=== PATIENT | male | born 1975 | race African-American/Black ===

== ENCOUNTER 2016-08-17 20:39 | Emergency (ER) | payer MEDICAID ==
[~2016-08-17] VITALS: Ht 175.3 cm; Wt 98.5 kg
[2016-08-18 05:53] VITALS: BP 115/79
== END 2016-08-18 06:20 | disposition left against medical advice (07) ==
LOC: ER 20:47
DX: R10.9 Unspecified abdominal pain (principal); R11.2 Nausea with vomiting, unspecified; Z53.21 Procedure and treatment not carried out due to patient leaving prior to being seen by health care provider

== ENCOUNTER → 2016-08-18 | Emergency (ER) | payer MEDICAID | END | disposition left against medical advice (07) | LOC: EDUNIT# 00:10 → ER 00:16 → EDBD 00:16 | DX: Z76.1 Encounter for health supervision and care of foundling (principal); Z53.21 Procedure and treatment not carried out due to patient leaving prior to being seen by health care provider ==

== ENCOUNTER 2016-10-08 02:55 | Observation (INO) | payer MEDICAID ==
[~2016-10-08] VITALS: Ht 175.3 cm; Wt 90.7 kg
[2016-10-08 03:57] LABS: Albumin 4.3 g/dL (3.4-5.0); BUN/Creatinine Ratio 11.5; Calcium 8.8 mg/dL (8.5-10.1); Magnesium 2.4 mg/dL (1.6-2.6)
[2016-10-08 04:04] LABS: Salicylate 2.7 mg/dL (2.8-20.0)
[2016-10-08 04:13] LABS: Acetaminophen < 2.0 ug/mL (10-30)
[2016-10-08 04:14] LABS: Basophils # (auto) 0.1 uL; Basophils % (auto) 0.7 % (0.0-2.0); Eosinophils # (auto) 0.1 uL; Eosinophils % (auto) 1.6 % (0.0-7.0); Hematocrit 47.6 % (41.0-53.0); Lymphocytes # (auto) 3.3 uL; Lymphocytes % (auto) 42.6 % (10.0-50.0); Mean Corpuscular Hemoglobin 31.1 pg (28.0-32.0); Mean Corpuscular Hgb Conc. 33.5 g/dL (32.0-36.0); Mean Corpuscular Volume 92.6 fL (80.0-100.0); Mean Platelet Volume 6.8 fL (7.4-10.4); Monocytes # (auto) 0.5 uL; Neutrophils # (auto) 3.8 uL; Neutrophils % (auto) 48.1 % (37.0-80.0); Platelet Count (auto) 407 10^3/uL (140-450); Red Cell Distribution Width 12.2 % (11.6-16.0); White Blood Cell 7.8 10^3/uL (4.4-10.8)
[2016-10-08 04:17] LABS: Bilirubin, Total 0.3 mg/dL (0.2-1.0); Potassium 3.8 mmol/L (3.5-5.1); Total Protein 7.8 g/dL (6.4-8.2)
[2016-10-08] MEDS ORDERED: SODIUM CHLORIDE 0.9% 1,000 ML IV ONE (07:58)
[2016-10-08] MEDS ORDERED: THIAMINE INJ 100 MG, MULTIPLE VITAMIN 10 ML, FOLIC ACID 1 MG, MAGNESIUM SULF SDV 50% 8 ... IV ONE ×5 (08:00)
[2016-10-08 10:50] VITALS: BP 123/65
== END 2016-10-08 12:21 | disposition home or self-care (01) | DRG 775 ==
LOC: ER 02:58 → OVERFLOW 07:59 → ER 12:21
PROVIDERS: ADMIT Emergency Medicine; ATTEND Emergency Medicine
DX: F10.129 Alcohol abuse with intoxication, unspecified (principal); I10 Essential (primary) hypertension; F15.10 Other stimulant abuse, uncomplicated; E86.0 Dehydration; E11.9 Type 2 diabetes mellitus without complications; F17.210 Nicotine dependence, cigarettes, uncomplicated
CPT/HCPCS: 36415; 80053; 80320; 80329; 82962; 83735; 85025; 96365; 96366; 99285; G0378; G0434; J3411; J3475; J7030

== ENCOUNTER 2016-10-08 23:51 | Emergency (ER) | payer MEDICAID ==
[~2016-10-08] VITALS: Ht 175.3 cm; Wt 88.5 kg
[2016-10-09 00:37] LABS: Basophils # (auto) 0.1 uL; Basophils % (auto) 1.1 % (0.0-2.0); DEFINITIVE VIEW TRANSMISSION; Eosinophils # (auto) 0.1 uL; Eosinophils % (auto) 2.1 % (0.0-7.0); Hematocrit 43.8 % (41.0-53.0); Hemoglobin 11.6 g/dL (13.5-17.5); Lymphocytes # (auto) 2.1 uL; Lymphocytes % (auto) 37.1 % (10.0-50.0); Mean Corpuscular Hemoglobin 24.7 pg (28.0-32.0); Mean Corpuscular Hgb Conc. 26.5 g/dL (32.0-36.0); Mean Corpuscular Volume 93.1 fL (80.0-100.0); Mean Platelet Volume 6.7 fL (7.4-10.4); Monocytes # (auto) 0.4 uL; Monocytes % (auto) 7.7 % (0.0-12.0); Neutrophils # (auto) 3.1 uL; Platelet Count (auto) 358 10^3/uL (140-450); Red Cell Distribution Width 12.4 % (11.6-16.0); White Blood Cell 5.8 10^3/uL (4.4-10.8)
[2016-10-09 01:00] LABS: Albumin 3.8 g/dL (3.4-5.0); Anion Gap 10 (5-15); Aspartate Aminotransferase 17 U/L (15-37); BUN/Creatinine Ratio 8.1; Blood Urea Nitrogen 6 mg/dL (7-18); Calcium 8.3 mg/dL (8.5-10.1); Carbon Dioxide 23 mmol/L (21-32); Chloride 108 mmol/L (98-107); GFR African American 151 mL/min; GFR Non-African American 125 mL/min; Glucose 116 mg/dL (74-106); Potassium 3.8 mmol/L (3.5-5.1); Sodium 141 mmol/L (136-145)
[2016-10-09 01:09] LABS: Alkaline Phosphatase 85 U/L (45-117); Bilirubin, Total 0.2 mg/dL (0.2-1.0); Total Protein 7.3 g/dL (6.4-8.2)
[2016-10-09] MEDS ORDERED: SODIUM CHLORIDE 0.9% 1,000 ML IV ONE (07:44)
[2016-10-09 08:11] VITALS: BP 119/81
== END 2016-10-09 08:32 | disposition home or self-care (01) ==
LOC: ER 23:51 → EDBD 23:51 → ER 10-09 08:32
DX: R07.89 Other chest pain (principal); I10 Essential (primary) hypertension; E11.9 Type 2 diabetes mellitus without complications; Z88.6 Allergy status to analgesic agent; Z88.0 Allergy status to penicillin; F17.210 Nicotine dependence, cigarettes, uncomplicated
CPT/HCPCS: 36415; 71020; 80053; 84484; 85025; 93005

== ENCOUNTER → 2016-10-20 | Emergency (ER) | payer MEDICAID | END | disposition left against medical advice (07) | LOC: ER 22:45 | DX: R51 Headache (principal); Z53.21 Procedure and treatment not carried out due to patient leaving prior to being seen by health care provider ==

== ENCOUNTER → 2016-10-27 | Emergency (ER) | payer MEDICAID | END | disposition left against medical advice (07) | LOC: ER 23:11 | DX: Z76.1 Encounter for health supervision and care of foundling (principal); Z53.21 Procedure and treatment not carried out due to patient leaving prior to being seen by health care provider ==

== ENCOUNTER 2017-08-08 21:43 | Emergency (ER) | payer MEDICAID ==
[~2017-08-08] VITALS: Ht 165.1 cm; Wt 81.6 kg
[2017-08-09 05:31] LABS: Basophils # (auto) 0.1 uL; Eosinophils # (auto) 0.2 uL; Eosinophils % (auto) 2.8 % (0.0-7.0); Hematocrit 43.2 % (41.0-53.0); Hemoglobin 14.9 g/dL (13.5-17.5); Lymphocytes # (auto) 2.9 uL; Lymphocytes % (auto) 47.6 % (10.0-50.0); Mean Corpuscular Hgb Conc. 34.6 g/dL (32.0-36.0); Mean Corpuscular Volume 95.4 fL (80.0-100.0); Monocytes # (auto) 0.5 uL; Monocytes % (auto) 8.7 % (0.0-12.0); Neutrophils # (auto) 2.4 uL; Neutrophils % (auto) 39.9 % (37.0-80.0); Nucleated Red Blood Cells % 0.1 %; Platelet Count (auto) 360 10^3/uL (140-450); Red Blood Cells 4.53 10^6/uL (4.5-5.90); Red Cell Distribution Width 12.9 % (11.8-14.3); White Blood Cell 6.1 10^3/uL (4.4-10.8)
[2017-08-09 05:46] LABS: Albumin 3.8 g/dL (3.4-5.0); Calcium 8.3 mg/dL (8.5-10.1); Potassium 3.8 mmol/L (3.5-5.1)
[2017-08-09 05:49] LABS: Bilirubin, Total 0.3 mg/dL (0.2-1.0)
[2017-08-09 05:58] LABS: Total Protein 7.2 g/dL (6.4-8.2)
[2017-08-09 06:34] LABS: BUN/Creatinine Ratio 20.8
[2017-08-09] MEDS ORDERED: SODIUM CHLORIDE 0.9% 1,000 ML IV ONE (06:58)
[2017-08-09] MEDS ORDERED: KETOROLAC TROMETH 30 MG/ML 1ML VIAL IV ONE (07:00)
[2017-08-09 07:30] VITALS: BP 126/68
== END 2017-08-09 08:31 | disposition home or self-care (01) ==
LOC: ER 21:43 → EDBD 21:43 → EDSEX 21:43 → ER 08-09 08:31
DX: J45.909 Unspecified asthma, uncomplicated (principal); M35.3 Polymyalgia rheumatica; I10 Essential (primary) hypertension; E11.9 Type 2 diabetes mellitus without complications; F17.210 Nicotine dependence, cigarettes, uncomplicated; Z88.0 Allergy status to penicillin; Z88.6 Allergy status to analgesic agent; Z90.49 Acquired absence of other specified parts of digestive tract
CPT/HCPCS: 36415; 71046; 80053; 83735; 83880; 85025; 93005; 94761; 96374; 99285; J1885; J7030

== ENCOUNTER 2019-01-21 14:42 | Emergency (ER) | payer MEDICAID ==
[~2019-01-21] VITALS: Ht 175.3 cm; Wt 86.2 kg
[2019-01-21 15:00] VITALS: BP 124/82
== END 2019-01-21 18:58 | disposition left against medical advice (07) ==
LOC: ER 14:42
DX: M25.512 Pain in left shoulder (principal); Z53.21 Procedure and treatment not carried out due to patient leaving prior to being seen by health care provider

== ENCOUNTER → 2020-04-22 | Emergency (ER) | payer MEDICAID | END | disposition left against medical advice (07) | LOC: ER 01:43 | DX: I10 Essential (primary) hypertension (principal); Z53.21 Procedure and treatment not carried out due to patient leaving prior to being seen by health care provider ==

== ENCOUNTER 2020-08-27 11:59 | Emergency (ER) | payer MEDICAID ==
[~2020-08-27] VITALS: Ht 175.3 cm; Wt 81.6 kg
[2020-08-27 12:06] VITALS: BP 146/94
== END 2020-08-27 15:10 | disposition left against medical advice (07) ==
LOC: ER 11:59
DX: K59.00 Constipation, unspecified (principal); Z53.21 Procedure and treatment not carried out due to patient leaving prior to being seen by health care provider

== ENCOUNTER 2021-07-21 12:47 | Emergency (ER) | payer MEDICAID ==
[~2021-07-21] VITALS: Ht 175.3 cm; Wt 86.2 kg
[2021-07-21 13:03] VITALS: BP 145/87
== END 2021-07-21 18:22 | disposition left against medical advice (07) ==
LOC: EDBD 12:47 → ER 12:47 → EDSEX 12:47 → ER 18:22
DX: R21 Rash and other nonspecific skin eruption (principal); Z53.21 Procedure and treatment not carried out due to patient leaving prior to being seen by health care provider

== ENCOUNTER 2021-07-22 14:46 | Emergency (ER) | payer MEDICAID ==
[~2021-07-22] VITALS: Ht 175.3 cm; Wt 77.1 kg
[2021-07-22 15:06] VITALS: BP 149/89
== END 2021-07-22 15:45 | disposition left against medical advice (07) ==
LOC: ER 14:48
DX: L02.414 Cutaneous abscess of left upper limb (principal); Z53.21 Procedure and treatment not carried out due to patient leaving prior to being seen by health care provider

== ENCOUNTER 2021-08-07 13:11 | Emergency (ER) | payer MEDICAID ==
[~2021-08-07] VITALS: Ht 175.3 cm; Wt 86.2 kg
[2021-08-07 13:49] VITALS: BP 143/91
[2021-08-07] MEDS ORDERED: INSU100I2 SC (13:51)
[2021-08-07] MEDS ORDERED: SULF400T11 PO (13:51)
== END 2021-08-07 13:57 | disposition home or self-care (01) ==
LOC: ER 13:11
DX: E11.9 Type 2 diabetes mellitus without complications (principal); J45.909 Unspecified asthma, uncomplicated; I10 Essential (primary) hypertension; F17.210 Nicotine dependence, cigarettes, uncomplicated; Z76.0 Encounter for issue of repeat prescription; Z88.0 Allergy status to penicillin; Z88.6 Allergy status to analgesic agent

== ENCOUNTER → 2021-12-03 | Outpatient (CLI) | payer MEDICAID ==
[~2021-12-03] MED LIST: INSU100I2 SC; SULF400T11 PO
[2021-12-03 13:22] LABS: Urine Bacteria NONE SEEN /hpf (None Seen); Urine Blood 3+ /uL (Negative); Urine WBC 3 /hpf (0 - 3)
[2021-12-03 13:35] LABS: Albumin 2.9 g/dL (3.4-5.0); Calcium 8.6 mg/dL (8.5-10.1); Potassium 3.7 mmol/L (3.5-5.1)
[2021-12-03 13:38] LABS: Bilirubin, Total 0.4 mg/dL (0.2-1.0); Total Protein 8.5 g/dL (6.4-8.2)
[2021-12-03 14:16] LABS: Protein, Urine 30.3 mg/dL (0.0-11.9)
== END | disposition home or self-care (01) ==
LOC: LAB 12:46
PROVIDERS: ATTEND Internal Medicine Nephrology
DX: E11.9 Type 2 diabetes mellitus without complications (principal); N17.9 Acute kidney failure, unspecified; R31.9 Hematuria, unspecified; R80.1 Persistent proteinuria, unspecified
CPT/HCPCS: 36415; 80053; 81001; 82570; 82784; 83883; 84155; 84156; 84165; 86038; 86160; 86225; 86256; 86334; 86431; 86592; 86703; 86704; 86705; 86709; 86803; 87086; 87340